=== PATIENT | male | born 1970 | race Hispanic/Latino ===

== ENCOUNTER 2020-11-28 22:49 | Emergency (ER) | payer MEDICARE ==
[~2020-11-28] VITALS: Ht 188 cm; Wt 93.9 kg
[2020-11-29] MEDS ORDERED: ULTRAM50 MG PO (01:01)
[2020-11-29] MEDS ORDERED: MEDROL4 MG PO (01:01)
[2020-11-29 01:17] VITALS: BP 148/79
== END 2020-11-29 01:24 | disposition home or self-care (01) ==
LOC: ER 23:50
DX: M25.512 Pain in left shoulder (principal); S43.102A Unspecified dislocation of left acromioclavicular joint, initial encounter; G89.29 Other chronic pain; I50.9 Heart failure, unspecified; I25.10 Atherosclerotic heart disease of native coronary artery without angina pectoris; Z95.810 Presence of automatic (implantable) cardiac defibrillator
CPT/HCPCS: 99283